=== PATIENT | female | born 1960 | race Caucasian/White ===

== ENCOUNTER 2021-01-29 17:45 | Emergency (ER) | payer OTHER ==
[~2021-01-29] VITALS: Ht 170.2 cm; Wt 95.3 kg
[~2021-01-29 17:45] MED LIST: ACYCLOVIR 800800 MG PO; PAXIL10 MG; PERCOCET 5-3251 EACH PO; REQUIP0.5 MG
[2021-01-29] MEDS ORDERED: XANAX 0.5 MG0.5 MG PO (17:56)
[2021-01-29] MEDS ORDERED: VENLAFAXINE HC150 M1 PO (17:56)
[2021-01-29] MEDS ORDERED: LEVO-T50 MCG PO (17:56)
[2021-01-29] MEDS ORDERED: PROAIR HFA8.5 GM INH (17:57)
[2021-01-29] MEDS ORDERED: BENZONATATE100 MG PO (17:57)
[2021-01-29] MEDS ORDERED: BUPROPION HCL150 M1 PO (17:57)
[2021-01-29] MEDS ORDERED: OMEPRAZOLE20 M2 PO (17:57)
[2021-01-29] MEDS ORDERED: DIAZEPAM 5 MG5 M1 PO (17:58)
[2021-01-29] MEDS ORDERED: MECLIZINE HCL25 M1 PO (17:58)
[2021-01-29 18:58] LABS: ABSOLUTE EOSINOPHILS 0.2 thou/uL (0.0-0.7); ABSOLUTE LYMPHOCYTES 1.9 thou/uL (0.8-5.3); ABSOLUTE MONOCYTES 0.7 thou/uL (0.0-1.2); ABSOLUTE NEUTROPHILS 8.4 thou/uL (1.6-8.1); BASOPHILS 0.3 %; EOSINOPHILS 1.5 %; HEMOGLOBIN 12.9 gm/dL (12.0-15.0); LYMPHOCYTES 17.2 %; MCH 27.8 pg (26.0-34.0); MCHC 33.1 g/dL (28.0-37.0); MCV 83.9 fL (80.0-100.0); MONOCYTES 6.5 %; MPV 8.8 fl. (7.2-11.1); NUCLEATED RBCS 0 /100WBC; PLATELET COUNT* 300 thou/uL (150-400); POLYS 74.5 %; RBC 4.65 mil/uL (4.20-5.00); WBC 11.2 thou/uL (4.0-11.0)
[2021-01-29 19:04] LABS: CALCIUM 9.3 mg/dL (8.5-10.1); CREATININE 1.2 mg/dL (0.6-1.3); POTASSIUM 3.6 mmol/L (3.5-5.1)
[2021-01-29 19:09] LABS: ALBUMIN 3.9 g/dL (3.4-5.0); TOTAL BILIRUBIN 0.3 mg/dL (<0.1-1.0); TOTAL PROTEIN 7.9 g/dL (6.4-8.2)
[2021-01-29 19:10] LABS: URINE BILIRUBIN NEGATIVE (Negative); URINE BLOOD NEGATIVE (Negative); URINE COLOR YELLOW; URINE GLUCOSE-RANDOM NEGATIVE (Negative); URINE KETONES NEGATIVE (Negative); URINE NITRITE-REFLEX NEGATIVE (Negative); URINE PROTEIN NEGATIVE (Negative); URINE UROBILINOGEN 0.2 E.U./dl (0.2-1.0)
[2021-01-29 19:14] LABS: URINE CLARITY HAZY; URINE LEUKOCYTES-REFLEX 2+ (Negative)
[2021-01-29 19:26] LABS: BACTERIA-REFLEX >30 Many /HPF (None Seen); CASTS None Seen /LPF (None Seen); CRYSTALS None Seen /LPF (None Seen); SQUAMOUS >10 Many /LPF (0-3); URINE RBC None Seen /HPF (0-2); URINE WBC-REFLEX >25 Many /HPF (0-5)
[2021-01-29] MEDS ORDERED: EFFEXOR XR150 MG PO (20:09)
[2021-01-29] MEDS ORDERED: VENTOLIN HFA 1818 GM INH (20:09)
[2021-01-29] MEDS ORDERED: LEVOFLOXACIN500 MG PO (20:09)
[2021-01-29 20:39] VITALS: BP 146/86
--- NOTE | 2021-01-30 12:21 | EKG ---
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: [facility] : 1960 Requested By: Jessica Morales Order Number: [id number] MD: Rasheed Valdez Measurements Intervals [place] Rate: 99 P: 4 W[place]: 136 QRS: 49 QRSD: 103 T: 31 QT: 345 QTc: 443 Interpretive Statements Sinus rhythm compared to ECG 11/04/2006 02:59:22 No significant changes noted Electronically Signed On 01-30-2021 12:21:12 CDT by Rasheed Valdez [email or web address] <ELECTRONICALLY SIGNED> By: Rasheed Valdez MD, [facility] 01/30/21 1221 1755 1755 Rasheed Valdez MD, [facility] /EPI
== END 2021-01-29 20:41 | disposition home or self-care (01) ==
LOC: M.ERS 17:45
PROVIDERS: Nurse Practitioner Family
DX: N39.0 Urinary tract infection, site not specified (principal); J18.9 Pneumonia, unspecified organism; R42 Dizziness and giddiness; G25.81 Restless legs syndrome; Z88.5 Allergy status to narcotic agent; Z88.0 Allergy status to penicillin; Z90.89 Acquired absence of other organs; Z90.49 Acquired absence of other specified parts of digestive tract

== ENCOUNTER 2021-06-25 13:27 | Emergency (ER) | payer BC ==
[~2021-06-25] VITALS: Ht 172.7 cm; Wt 95.3 kg
[~2021-06-25 13:27] MED LIST changes: +BENZONATATE100 MG PO; +BUPROPION HCL150 M1 PO; +DIAZEPAM 5 MG5 M1 PO; +EFFEXOR XR150 MG PO; +LEVO-T50 MCG PO; +LEVOFLOXACIN500 MG PO; +MECLIZINE HCL25 M1 PO; +OMEPRAZOLE20 M2 PO; +PROAIR HFA8.5 GM INH; +VENLAFAXINE HC150 M1 PO; +VENTOLIN HFA 1818 GM INH; +XANAX 0.5 MG0.5 MG PO
[2021-06-25 15:21] LABS: ABSOLUTE BASOPHILS 0.1 thou/uL (0.0-0.2); ABSOLUTE EOSINOPHILS 0.1 thou/uL (0.0-0.7); ABSOLUTE MONOCYTES 0.5 thou/uL (0.0-1.2); ABSOLUTE NEUTROPHILS 6.7 thou/uL (1.6-8.1); BASOPHILS 0.9 %; EOSINOPHILS 1.3 %; HEMATOCRIT 41.5 % (37.0-47.0); HEMOGLOBIN 13.4 gm/dL (12.0-15.0); LYMPHOCYTES 21.5 %; MCH 27.8 pg (26.0-34.0); MCHC 32.3 g/dL (28.0-37.0); MCV 85.9 fL (80.0-100.0); MONOCYTES 5.7 %; MPV 8.8 fl. (7.2-11.1); NUCLEATED RBCS 0 /100WBC; PLATELET COUNT* 291 thou/uL (150-400); POLYS 70.6 %; RBC 4.83 mil/uL (4.20-5.00); RDW-CV 13.8 % (10.5-14.5); WBC 9.5 thou/uL (4.0-11.0)
[2021-06-25 15:26] LABS: URINE BILIRUBIN NEGATIVE (Negative); URINE BLOOD NEGATIVE (Negative); URINE CLARITY HAZY; URINE COLOR YELLOW; URINE GLUCOSE-RANDOM NEGATIVE (Negative); URINE KETONES NEGATIVE (Negative); URINE LEUKOCYTES-REFLEX TRACE (Negative); URINE NITRITE-REFLEX NEGATIVE (Negative); URINE PROTEIN NEGATIVE (Negative); URINE SPECIFIC GRAVITY 1.025 (1.005-1.030); URINE UROBILINOGEN 0.2 E.U./dl (0.2-1.0)
[2021-06-25 15:32] LABS: CALCIUM 8.9 mg/dL (8.5-10.1); CREATININE 1.5 mg/dL (0.6-1.3); POTASSIUM 3.9 mmol/L (3.5-5.1)
[2021-06-25 15:33] LABS: SQUAMOUS >10 Many /LPF (0-3)
[2021-06-25 15:35] LABS: BACTERIA-REFLEX 1-9 Few /HPF (None Seen); CRYSTALS None Seen /LPF (None Seen); FINE GRANULAR CASTS 0-3 Few /LPF (None Seen); HYALINE CASTS 0-3 Few /LPF (None Seen); MUCUS 0-3 Light strn/LPF (None Seen); URINE RBC None Seen /HPF (0-2); URINE WBC-REFLEX 0-5 Rare /HPF (0-5)
[2021-06-25 15:37] LABS: ALBUMIN 4.2 g/dL (3.4-5.0); TOTAL BILIRUBIN 0.2 mg/dL (<0.1-1.0); TOTAL PROTEIN 7.7 g/dL (6.4-8.2)
[2021-06-25] MEDS ORDERED: MACROBID 100 M100 MG PO (16:12)
[2021-06-25 16:19] VITALS: BP 145/91
--- NOTE | 2021-06-26 10:01 | EKG ---
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
== END 2021-06-25 16:21 | disposition home or self-care (01) ==
LOC: M.ERS 13:27
PROVIDERS: Physician Assistant
DX: J06.9 Acute upper respiratory infection, unspecified (principal); Z20.822 Contact with and (suspected) exposure to COVID-19; N39.0 Urinary tract infection, site not specified; G25.81 Restless legs syndrome; E03.9 Hypothyroidism, unspecified; Z90.89 Acquired absence of other organs; Z90.49 Acquired absence of other specified parts of digestive tract; Z88.5 Allergy status to narcotic agent; Z88.0 Allergy status to penicillin

== ENCOUNTER → 2021-07-09 | Outpatient (CLI) | payer BC ==
[~2021-07-09] MED LIST changes: +MACROBID 100 M100 MG PO
== END ==
LOC: M.RAD 13:21
PROVIDERS: ATTEND Family Medicine
DX: Z12.31 Encounter for screening mammogram for malignant neoplasm of breast (principal)